=== PATIENT | male | born 1985 | race Caucasian/White ===

== ENCOUNTER 2021-02-14 23:48 | Emergency (ER) | payer SELFPAY ==
[~2021-02-14] VITALS: Ht 177.8 cm; Wt 96.0 kg
[2021-02-15] MEDS ORDERED: SODIUM CHLORIDE 0.9% 1,000 ML IV ONE (00:30)
[2021-02-15 00:56] LABS: HEMOGLOBIN. 18.1 g/dL (14.0-18.0); MEAN CORPUSCULAR HEMOGLOBIN 33.4 pg (28.0-32.0); MEAN CORPUSCULAR VOLUME 94.2 fL (80.0-94.0); MEAN PLATELET VOLUME 7.6 fl (7.4-10.4); PLATELET 166 x1000/uL (130-400); RED BLOOD CELL COUNT 5.41 mill/uL (4.7-6.1); RED CELL DISTRIBUTION WIDTH 13.5 % (11.6-14.6)
[2021-02-15 00:59] LABS: CHLORIDE 110 mEq/L (98-107)
[2021-02-15 01:08] LABS: CREATINE KINASE 281 IU/L (39-308)
[2021-02-15 01:24] LABS: ETHANOL BLOOD 530 mg/dL
[2021-02-15] MEDS ORDERED: POTASSIUM CHLORIDE 20MEQ TABLET SR PO NR (01:30)
[2021-02-15] MEDS ORDERED: MULT-1146 MT (01:30)
[2021-02-15] MEDS ORDERED: ONDA4TAB5 MT (01:30)
[2021-02-15 01:40] VITALS: BP 158/98
[2021-02-15 03:03] LABS: PLATELET ESTIMATE NORMAL
== END 2021-02-15 02:14 | disposition left against medical advice (07) ==
LOC: ER 23:48
DX: F10.129 Alcohol abuse with intoxication, unspecified (principal); K70.10 Alcoholic hepatitis without ascites; R00.0 Tachycardia, unspecified; R03.0 Elevated blood-pressure reading, without diagnosis of hypertension; E87.6 Hypokalemia; Y90.8 Blood alcohol level of 240 mg/100 ml or more; I25.2 Old myocardial infarction; F12.90 Cannabis use, unspecified, uncomplicated
CPT/HCPCS: 36415; 80053; 80307; 80320; 80329; 82140; 82550; 82962; 83690; 85025; 93005; 99284; J7030; G0480